=== PATIENT | male | born 1980 | race Caucasian/White ===

== ENCOUNTER 2016-12-24 11:35 | Emergency (ER) | payer BC, OTHER ==
[~2016-12-24] VITALS: Ht 172.7 cm; Wt 63.6 kg
[2016-12-24 12:37] LABS: BLOOD UREA NITROGEN 18 mg/dL (7-18)
[2016-12-24 12:45] LABS: IS PT STATUS REG ER OR PRE ER? YES
[2016-12-24] MEDS ORDERED: SODIUM CHLORIDE 0.9% 1,000 ML IV ONE (14:39)
[2016-12-24] MEDS ORDERED: ONDANSETRON 2MG/ML, 2ML ONE (14:44)
[2016-12-24] MEDS ORDERED: HYDROmorphone 1 MG/ML, 1ML ONE ×2 (14:44→16:58)
[2016-12-24] MEDS: HYDROmorphone 1 MG/ML, 1ML IVPush PRN ×2 (14:54→16:59)
[2016-12-24] MEDS ORDERED: SODIUM CHLORIDE FLUSH 10ML SYR IVF ONE (15:00)
[2016-12-24] MEDS ORDERED: ONDANSETRON 2MG/ML, 2ML IVPush ONE (15:00)
[2016-12-24] MEDS ORDERED: OMNIPAQUE 350 MG/ML, 150 ML BOTTLE ONE (15:21)
[2016-12-24 17:51] VITALS: BP 120/74
== END 2016-12-24 17:54 | disposition home or self-care (01) ==
LOC: ED 16:49
DX: M25.512 Pain in left shoulder (principal); M79.622 Pain in left upper arm
CPT/HCPCS: 36415; 70496; 70498; 71010; 71275; 80048; 82040; 84484; 85379; 85610; 93005; 93971; 96361; 96374; 96375; 96376; 99285; J1170; J2405; J7030; Q9967

== ENCOUNTER 2017-07-17 07:59 | Emergency (ER) | payer BC ==
[~2017-07-17] VITALS: Ht 170.2 cm; Wt 59.8 kg
[2017-07-17] MEDS ORDERED: OXYcodone/APAP 5/325MG TABLET ONE (08:41)
[2017-07-17] MEDS ORDERED: DIAZEPAM 5 MG TABLET ONE (08:42)
[2017-07-17] MEDS ORDERED: OXYcodone/APAP 5/325MG TABLET PO ONE (09:00)
[2017-07-17] MEDS ORDERED: DIAZEPAM 5 MG TABLET PO ONE (09:00)
[2017-07-17 09:32] VITALS: BP 110/78
== END 2017-07-17 09:35 | disposition home or self-care (01) ==
LOC: ED 08:36
DX: S16.1XXA Strain of muscle, fascia and tendon at neck level, initial encounter (principal); X58.XXXA Exposure to other specified factors, initial encounter; Y93.89 Activity, other specified; Y92.89 Other specified places as the place of occurrence of the external cause; Y99.8 Other external cause status
CPT/HCPCS: 72050; 93005; 99284